=== PATIENT | male | born 1975 | race Caucasian/White ===

== ENCOUNTER 2016-07-29 15:11 | Inpatient (IN) | payer MEDICAID ==
[2016-07-29] VITALS (193 sets, daily range): BP systolic 123–126; BP diastolic 63–89; PULSE 79–89; TEMP 98.6–99.5; O2SAT 91–96
[~2016-07-29] VITALS: Ht 177.8 cm; Wt 69.6 kg
[2016-07-29] MEDS ORDERED: PREDNISONE20 MG PO (17:50)
[2016-07-29] MEDS ORDERED: DIPROLENE CR15GM TP (17:51)
[2016-07-29] MEDS ORDERED: ATROVENT I0.2 MG/1 M IH (17:52)
[2016-07-29] MEDS ORDERED: PROAIR HFA0.09 MG/AC IH (17:53)
[2016-07-29] MEDS ORDERED: RT SPIRIVA18 MCG IH (17:54)
[2016-07-29] MEDS ORDERED: XANAX 1MG1 MG PO (17:55)
[2016-07-29] MEDS ORDERED: NICODERM C21 MG/PATC TD (17:55)
[2016-07-29] MEDS ORDERED: SEREVENT IH (17:55)
[2016-07-29] MEDS ORDERED: PAXIL40 MG PO (17:56)
[2016-07-29] MEDS ORDERED: MINIPRESS2 MG PO (17:57)
[2016-07-29] MEDS ORDERED: SEROQUEL 1100 MG/TAB PO (17:57)
[2016-07-30] VITALS (508 sets, daily range): BP systolic 102–122; BP diastolic 65–81; PULSE 61–87; TEMP 98–98.6; O2SAT 88–99
[2016-07-30 16:24] LABS: HEMATOCRIT 40.2 % (42.0-52.0); MEAN CELL VOLUME 90 fl (80.0-100.0); MEAN CORPUSCULAR HEMOGLOBIN 31 pg (27.0-31.0); MEAN CORPUSCULAR HGB CONC 35 g/dl (33.0-37.0); MEAN PLATELET VOLUME 8.8 fl (7.4-10.4); PLATELET COUNT 243 K/mm3 (130-400); RED BLOOD COUNT 4.49 M/mm3 (4.20-5.60); WHITE BLOOD COUNT 6.7 K/mm3 (4.8-10.8)
[2016-07-30 16:28] LABS: ADJUSTED CALCIUM 8.7 mg/dL (8.4-10.2); ALANINE AMINOTRANSFERASE 28 U/L (21-72); ALBUMIN 3.6 gm/dL (3.5-5.0); ALKALINE PHOSPHATASE 55 U/L (50-136); ANION GAP 10 mmol/L (7-16); BILIRUBIN,TOTAL 0.6 mg/dL (0.0-1.0); BLOOD UREA NITROGEN 12 mg/dL (9-20); CALCIUM 8.4 mg/dL (8.4-10.2); CARBON DIOXIDE 27 mmol/L (22-30); CHLORIDE 100 mmol/L (98-107); CREATINE KINASE 44 U/L (55-170); CREATININE, serum 0.93 mg/dL (0.66-1.25); GLUCOSE 91 mg/dL (74-106); POTASSIUM 3.8 mmol/L (3.4-5.0); SODIUM 137 mmol/L (137-145); TOTAL PROTEIN 6.3 gm/dL (6.4-8.2)
[2016-07-30 16:29] LABS: CHOLESTEROL 174 mg/dL (120-200); HDL CHOLESTEROL 45 mg/dL; LDL CHOLESTEROL 106 mg/dL; TRIGLYCERIDE 116 mg/dL
[2016-07-30 16:43] LABS: TROPONIN-I < 0.012 ng/mL (0.000-0.034)
[2016-07-30 16:47] LABS: ADD PATHOLOGY DIFF REVIEW NO
[2016-07-30 16:58] LABS: BASOPHIL 2 % (0-2); NEUTROPHILS 46 % (42.0-75.2); TOTAL CELLS COUNTED 100
[2016-07-30 17:01] LABS: ERYTHROCYTE SEDIMENTATION RATE 2 mm/hr (0-15)
[2016-07-31 03:59] VITALS: BP 110/62; PULSE 75; TEMP 98.7
[2016-07-31 07:45] VITALS: BP 129/75; PULSE 71; TEMP 97.5
[2016-07-31] MEDS ORDERED: PLAVIX 75MG TAB75 MG PO (09:58)
[2016-07-31 11:28] VITALS: BP 117/77; PULSE 79; TEMP 98.1
[2016-07-31] MEDS ORDERED: PRAVACHOL 20MG20 MG PO (12:31)
== END 2016-07-31 13:31 | disposition home or self-care (01) | DRG 65 ==
LOC: ICU 15:11 → EDBD 17:18 → MEDICAL 07-30 15:10
PROVIDERS: Psychiatry & Neurology Neurology
DX: I63.9 Cerebral infarction, unspecified (principal); G81.94 Hemiplegia, unspecified affecting left nondominant side; J44.9 Chronic obstructive pulmonary disease, unspecified; R29.810 Facial weakness; Z66 Do not resuscitate; R07.9 Chest pain, unspecified; F41.9 Anxiety disorder, unspecified; F32.9 Major depressive disorder, single episode, unspecified; F17.210 Nicotine dependence, cigarettes, uncomplicated; F12.90 Cannabis use, unspecified, uncomplicated; F43.11 Post-traumatic stress disorder, acute
CPT/HCPCS: 99223-AI; 99232-AI; 99239; A9585; Q9967

== ENCOUNTER 2016-11-08 02:53 | Emergency (ER) | payer MEDICAID ==
[~2016-11-08] VITALS: Ht 177.8 cm; Wt 81.8 kg
[~2016-11-08 02:53] MED LIST: ATROVENT I0.2 MG/1 M IH; DIPROLENE CR15GM TP; MINIPRESS2 MG PO; NICODERM C21 MG/PATC TD; PAXIL40 MG PO; PLAVIX 75MG TAB75 MG PO; PRAVACHOL 20MG20 MG PO; PREDNISONE20 MG PO; PROAIR HFA0.09 MG/AC IH; RT SPIRIVA18 MCG IH; SEREVENT IH; SEROQUEL 1100 MG/TAB PO; XANAX 1MG1 MG PO
[2016-11-08 03:10] VITALS: TEMP 98.3
[2016-11-08 03:11] LABS: BASO # 0.1 (0.0-0.2); BASO % 0.6 % (0.0-2.0); EOS # 0.1 (0.0-0.7); EOS % 1.1 % (0-4.0); GRAN # 5.5 (1.4-6.5); GRAN % 54.2 % (42.2-75.2); HEMATOCRIT 44.8 % (42.0-52.0); HEMOGLOBIN 15.7 g/dl (13.5-18.0); LYMPH # 3.5 (1.2-3.4); LYMPH % 34.7 % (20.0-51.0); MEAN CELL VOLUME 90 fl (80.0-100.0); MEAN CORPUSCULAR HEMOGLOBIN 31 pg (27.0-31.0); MEAN CORPUSCULAR HGB CONC 35 g/dl (33.0-37.0); MEAN PLATELET VOLUME 8.9 fl (7.4-10.4); MONO # 0.9 (0.1-0.6); MONO % 9.1 % (1.7-9.3); PLATELET COUNT 306 K/mm3 (130-400); REDCELL DISTRIBUTION WIDTH-CV 13.1 % (11.5-14.5); WHITE BLOOD COUNT 10.1 K/mm3 (4.8-10.8)
[2016-11-08 03:21] LABS: BLOOD UREA NITROGEN 16 mg/dL (9-20); CHLORIDE 108 mmol/L (98-107); CREATININE, serum 1.02 mg/dL (0.66-1.25); GLUCOSE 97 mg/dL (74-106); POTASSIUM 4.1 mmol/L (3.4-5.0); SODIUM 143 mmol/L (137-145)
[2016-11-08 03:22] LABS: ADJUSTED CALCIUM 8.8 mg/dL (8.4-10.2); ALANINE AMINOTRANSFERASE 22 U/L (21-72); ALBUMIN 4.8 gm/dL (3.5-5.0); ALKALINE PHOSPHATASE 75 U/L (50-136); ANION GAP 21 mmol/L (7-16); BILIRUBIN,TOTAL 0.6 mg/dL (0.0-1.0); CALCIUM 9.4 mg/dL (8.4-10.2); CARBON DIOXIDE 14 mmol/L (22-30); LIPASE 163 U/L (23-300); TOTAL PROTEIN 7.7 gm/dL (6.4-8.2)
[2016-11-08 03:36] LABS: TROPONIN-I < 0.012 ng/mL (0.000-0.034)
[2016-11-08 03:39] LABS: PH 6 (5-8); SQUAMOUS EPITHELIAL None Seen /hpf; URINE APPEARANCE Clear; URINE BACTERIA None Seen /hpf; URINE BILIRUBIN Negative (NEGATIVE); URINE BLOOD 1+ (NEGATIVE); URINE COLOR Colorless; URINE GLUCOSE Negative (NEGATIVE); URINE KETONE Negative (NEGATIVE); URINE RBC 0-2 /hpf; URINE UROBILINOGEN Negative (NEGATIVE); URINE WBC None Seen /hpf
[2016-11-08 03:44] LABS: AMPHETAMINE URINE NEGATIVE; BARBITURATES URINE NEGATIVE; BENZODIAZEPINES URINE POSITIVE; BUPRENORPHINE URINE NEGATIVE; METHADONE URINE NEGATIVE; OPIATES URINE NEGATIVE; OXYCODONE URINE NEGATIVE; PHENCYCLIDINE URINE NEGATIVE; PROPOXYPHENE URINE NEGATIVE; THC CANNABINOIDS URINE NEGATIVE
[2016-11-08 05:23] VITALS: BP 107/67; PULSE 78
== END 2016-11-08 05:25 | disposition home or self-care (01) ==
LOC: COL.ER 02:53
PROVIDERS: Emergency Medicine
DX: R10.13 Epigastric pain (principal); Z86.73 Personal history of transient ischemic attack (TIA), and cerebral infarction without residual deficits; F17.210 Nicotine dependence, cigarettes, uncomplicated; Z79.02 Long term (current) use of antithrombotics/antiplatelets; I51.9 Heart disease, unspecified
CPT/HCPCS: J1630; J3010; J7030; Q9967

== ENCOUNTER 2016-11-25 03:00 | Emergency (ER) | payer MEDICAID ==
[~2016-11-25] VITALS: Ht 177.8 cm; Wt 82.7 kg
[2016-11-25 03:06] VITALS: TEMP 97.3
[2016-11-25] MEDS ORDERED: ZOFRAN ODT4 MG PO (03:18)
[2016-11-25] MEDS ORDERED: PRIL40 PO (03:19)
[2016-11-25] MEDS ORDERED: PROTONIX 40MG T40 MG PO (03:20)
[2016-11-25 03:22] LABS: BASO # 0.1 (0.0-0.2); BASO % 0.8 % (0.0-2.0); EOS # 0.2 (0.0-0.7); EOS % 1.9 % (0-4.0); GRAN # 5.4 (1.4-6.5); HEMOGLOBIN 15.2 g/dl (13.5-18.0); LYMPH % 31.5 % (20.0-51.0); MEAN CELL VOLUME 88 fl (80.0-100.0); MEAN CORPUSCULAR HEMOGLOBIN 31 pg (27.0-31.0); MEAN CORPUSCULAR HGB CONC 35 g/dl (33.0-37.0); MEAN PLATELET VOLUME 8.9 fl (7.4-10.4); MONO # 0.7 (0.1-0.6); MONO % 7.4 % (1.7-9.3); PLATELET COUNT 296 K/mm3 (130-400); RED BLOOD COUNT 4.87 M/mm3 (4.20-5.60); REDCELL DISTRIBUTION WIDTH-CV 13.2 % (11.5-14.5); WHITE BLOOD COUNT 9.5 K/mm3 (4.8-10.8)
[2016-11-25 03:31] LABS: ADJUSTED CALCIUM 8.7 mg/dL (8.4-10.2); ALANINE AMINOTRANSFERASE 33 U/L (21-72); ALBUMIN 4.6 gm/dL (3.5-5.0); ALKALINE PHOSPHATASE 80 U/L (50-136); ANION GAP 17 mmol/L (7-16); BILIRUBIN,TOTAL 0.4 mg/dL (0.0-1.0); BLOOD UREA NITROGEN 10 mg/dL (9-20); CALCIUM 9.2 mg/dL (8.4-10.2); CARBON DIOXIDE 23 mmol/L (22-30); CHLORIDE 103 mmol/L (98-107); GLUCOSE 92 mg/dL (74-106); LIPASE 182 U/L (23-300); POTASSIUM 3.9 mmol/L (3.4-5.0); SODIUM 142 mmol/L (137-145); TOTAL PROTEIN 7.8 gm/dL (6.4-8.2)
[2016-11-25 03:40] LABS: B-TYPE NATRIURETIC PEPTIDE 80 pg/mL (0-125)
[2016-11-25 03:55] LABS: TROPONIN-I < 0.012 ng/mL (0.000-0.034)
[2016-11-25 06:01] VITALS: BP 114/73; PULSE 97
== END 2016-11-25 06:01 | disposition home or self-care (01) ==
LOC: COL.ER 03:00
PROVIDERS: Emergency Medicine
DX: R10.13 Epigastric pain (principal); R07.9 Chest pain, unspecified; I10 Essential (primary) hypertension; J44.9 Chronic obstructive pulmonary disease, unspecified; Z79.02 Long term (current) use of antithrombotics/antiplatelets; F17.200 Nicotine dependence, unspecified, uncomplicated; Z72.89 Other problems related to lifestyle
CPT/HCPCS: C9113; J2405

== ENCOUNTER 2016-12-02 02:55 | Emergency (ER) | payer MEDICAID ==
[~2016-12-02] VITALS: Ht 177.8 cm; Wt 90.9 kg
[~2016-12-02 02:55] MED LIST changes: +PRIL40 PO; +PROTONIX 40MG T40 MG PO; +ZOFRAN ODT4 MG PO
[2016-12-02 03:01] VITALS: TEMP 98.3
[2016-12-02] MEDS ORDERED: CHANTIX 1MG1 MG PO (03:14)
[2016-12-02 03:20] LABS: BASO # 0.1 (0.0-0.2); BASO % 0.7 % (0.0-2.0); EOS # 0.1 (0.0-0.7); EOS % 1.6 % (0-4.0); GRAN # 4.8 (1.4-6.5); GRAN % 54.7 % (42.2-75.2); HEMOGLOBIN 14.6 g/dl (13.5-18.0); LYMPH # 3.1 (1.2-3.4); LYMPH % 35.2 % (20.0-51.0); MEAN CELL VOLUME 88 fl (80.0-100.0); MEAN CORPUSCULAR HEMOGLOBIN 31 pg (27.0-31.0); MEAN CORPUSCULAR HGB CONC 35 g/dl (33.0-37.0); MONO # 0.6 (0.1-0.6); MONO % 7.1 % (1.7-9.3); PLATELET COUNT 276 K/mm3 (130-400); RED BLOOD COUNT 4.76 M/mm3 (4.20-5.60); REDCELL DISTRIBUTION WIDTH-CV 13.2 % (11.5-14.5); WHITE BLOOD COUNT 8.7 K/mm3 (4.8-10.8)
[2016-12-02 03:30] LABS: ADJUSTED CALCIUM 8.4 mg/dL (8.4-10.2); ALANINE AMINOTRANSFERASE 33 U/L (21-72); ALBUMIN 4.6 gm/dL (3.5-5.0); ALKALINE PHOSPHATASE 82 U/L (50-136); ANION GAP 16 mmol/L (7-16); BILIRUBIN,TOTAL 0.4 mg/dL (0.0-1.0); BLOOD UREA NITROGEN 10 mg/dL (9-20); CALCIUM 8.9 mg/dL (8.4-10.2); CARBON DIOXIDE 20 mmol/L (22-30); CHLORIDE 105 mmol/L (98-107); GLUCOSE 98 mg/dL (74-106); LIPASE 203 U/L (23-300); POTASSIUM 3.8 mmol/L (3.4-5.0); SODIUM 141 mmol/L (137-145); TOTAL PROTEIN 7.6 gm/dL (6.4-8.2)
[2016-12-02 03:42] LABS: B-TYPE NATRIURETIC PEPTIDE 46 pg/mL (0-125); TROPONIN-I < 0.012 ng/mL (0.000-0.034)
[2016-12-02] MEDS ORDERED: PRIL40 PO (04:13)
[2016-12-02 06:17] VITALS: BP 127/80; PULSE 93
== END 2016-12-02 06:17 | disposition home or self-care (01) ==
LOC: COL.ER 02:55
PROVIDERS: Emergency Medicine
DX: R07.89 Other chest pain (principal); R10.13 Epigastric pain; J44.9 Chronic obstructive pulmonary disease, unspecified; F41.9 Anxiety disorder, unspecified; F43.10 Post-traumatic stress disorder, unspecified; F17.210 Nicotine dependence, cigarettes, uncomplicated; Z79.02 Long term (current) use of antithrombotics/antiplatelets; Z98.890 Other specified postprocedural states; Z98.52 Vasectomy status
CPT/HCPCS: C9113; J1885

== ENCOUNTER 2016-12-15 09:45 | Emergency (ER) | payer MEDICAID ==
[~2016-12-15] VITALS: Ht 177.8 cm; Wt 86.8 kg
[~2016-12-15 09:45] MED LIST changes: +CHANTIX 1MG1 MG PO
[2016-12-15 09:49] VITALS: TEMP 98.5
[2016-12-15 10:24] LABS: BASO # 0.1 (0.0-0.2); BASO % 0.6 % (0.0-2.0); EOS % 0.3 % (0-4.0); GRAN # 7.8 (1.4-6.5); GRAN % 68.2 % (42.2-75.2); HEMATOCRIT 44.8 % (42.0-52.0); HEMOGLOBIN 15.8 g/dl (13.5-18.0); LYMPH # 2.4 (1.2-3.4); LYMPH % 21.2 % (20.0-51.0); MEAN CELL VOLUME 87 fl (80.0-100.0); MEAN CORPUSCULAR HEMOGLOBIN 31 pg (27.0-31.0); MEAN CORPUSCULAR HGB CONC 35 g/dl (33.0-37.0); MEAN PLATELET VOLUME 8.8 fl (7.4-10.4); MONO # 1.1 (0.1-0.6); MONO % 9.3 % (1.7-9.3); PLATELET COUNT 308 K/mm3 (130-400); RED BLOOD COUNT 5.13 M/mm3 (4.20-5.60); REDCELL DISTRIBUTION WIDTH-CV 13.3 % (11.5-14.5); WHITE BLOOD COUNT 11.5 K/mm3 (4.8-10.8)
[2016-12-15 10:35] LABS: ADJUSTED CALCIUM 9.6 mg/dL (8.4-10.2); ALANINE AMINOTRANSFERASE 40 U/L (21-72); ALBUMIN 5.2 gm/dL (3.5-5.0); ALKALINE PHOSPHATASE 96 U/L (50-136); ANION GAP 18 mmol/L (7-16); BILIRUBIN,TOTAL 0.9 mg/dL (0.0-1.0); BLOOD UREA NITROGEN 10 mg/dL (9-20); CALCIUM 10.6 mg/dL (8.4-10.2); CARBON DIOXIDE 15 mmol/L (22-30); CHLORIDE 106 mmol/L (98-107); CREATININE, serum 1.02 mg/dL (0.66-1.25); GLUCOSE 95 mg/dL (74-106); LIPASE 158 U/L (23-300); POTASSIUM 3.7 mmol/L (3.4-5.0); SODIUM 139 mmol/L (137-145); TOTAL PROTEIN 8.4 gm/dL (6.4-8.2)
[2016-12-15 10:54] LABS: TROPONIN-I < 0.012 ng/mL (0.000-0.034)
[2016-12-15 11:20] VITALS: BP 131/87; PULSE 60
== END 2016-12-15 11:20 | disposition home or self-care (01) ==
LOC: COL.ER 09:45
PROVIDERS: Physician Assistant
DX: R10.13 Epigastric pain (principal); K21.9 Gastro-esophageal reflux disease without esophagitis; F43.10 Post-traumatic stress disorder, unspecified; J44.9 Chronic obstructive pulmonary disease, unspecified; I10 Essential (primary) hypertension; F17.210 Nicotine dependence, cigarettes, uncomplicated; Z86.73 Personal history of transient ischemic attack (TIA), and cerebral infarction without residual deficits; Z87.11 Personal history of peptic ulcer disease; Z86.79 Personal history of other diseases of the circulatory system

== ENCOUNTER → 2020-02-16 | Outpatient (CLI) | payer MEDICAID | LOC: ZCOL.LAB 18:04 | DX: Z20.828 Contact with and (suspected) exposure to other viral communicable diseases (principal) ==

== ENCOUNTER 2022-01-30 13:36 | Emergency (ER) | payer OTHER ==
[~2022-01-30] VITALS: Ht 177.8 cm; Wt 88.6 kg
[2022-01-30 13:54] VITALS: TEMP 98.4
[2022-01-30 14:21] LABS: BASO # 0.1 K/mm3 (0.0-0.2); BASO % 0.7 % (0.0-2.0); EOS # 0.2 K/mm3 (0.0-0.7); GRAN # 6.6 K/mm3 (1.4-6.5); HEMATOCRIT 45.5 % (42.0-52.0); HEMOGLOBIN 15.8 g/dl (13.5-18.0); LYMPH # 2.9 K/mm3 (1.2-3.4); MEAN CELL VOLUME 88 fl (80.0-100.0); MEAN CORPUSCULAR HEMOGLOBIN 31 pg (27-31); MEAN CORPUSCULAR HGB CONC 35 g/dl (33.0-37.0); MEAN PLATELET VOLUME 8.9 fl (7.4-10.4); MONO % 8.9 % (1.7-9.3); PLATELET COUNT 274 K/mm3 (130-400); RED BLOOD COUNT 5.17 M/mm3 (4.20-5.60)
[2022-01-30 14:43] LABS: ALBUMIN 4.4 gm/dL (3.5-5.0); BILIRUBIN,TOTAL 0.3 mg/dL (0.2-1.2); C-REACTIVE PROTEIN 0.11 mg/dL (0.00-0.50); CALCIUM 8.8 mg/dL (8.4-10.2); CREATININE, serum 1.06 mg/dL (0.72-1.25); POTASSIUM 4.6 mmol/L (3.5-4.5); TOTAL PROTEIN 6.7 gm/dL (6.2-8.1)
[2022-01-30] MEDS ORDERED: KLONOPIN 1MG1 MG PO (14:48)
[2022-01-30] MEDS ORDERED: CRESTOR40 MG PO (14:49)
[2022-01-30] MEDS ORDERED: SEROQUEL300 MG PO (14:49)
[2022-01-30] MEDS ORDERED: MINIPRESS2 MG (14:49)
[2022-01-30] MEDS ORDERED: NICODERM C14 MG/PATC TD (14:50)
[2022-01-30] MEDS ORDERED: BUSPAR DIVIDOSE15 MG PO (14:50)
[2022-01-30] MEDS ORDERED: TALTZ AUTO80 MG/1 ML SQ (14:50)
[2022-01-30 17:24] LABS: COLLECTION METHOD CLEAN CATCH
[2022-01-30 17:25] VITALS: BP 131/83; PULSE 73
[2022-01-30 17:40] LABS: URINE APPEARANCE Clear (CLEAR/HAZY); URINE COLOR Yellow (YELLOW); URINE PROTEIN(semi-quant) Negative (NEGATIVE)
[2022-01-30 17:41] LABS: MUCOUS Present (NOT PRESENT); SQUAMOUS EPITHELIAL None Seen /hpf (0-10); URINE BACTERIA None Seen /hpf (NONE SEEN); URINE BLOOD 1+ (NEGATIVE); URINE GLUCOSE Negative (NEGATIVE); URINE KETONE Negative (NEGATIVE); URINE NITRATE Negative (NEGATIVE); URINE RBC 0-2 /hpf (0-2); URINE UROBILINOGEN 0.2 E.U/dL (0.2-1.0)
== END 2022-01-30 17:25 | disposition home or self-care (01) ==
LOC: COL.ER 13:36
PROVIDERS: Physician Assistant
DX: R10.31 Right lower quadrant pain (principal); F17.210 Nicotine dependence, cigarettes, uncomplicated; Z88.6 Allergy status to analgesic agent
CPT/HCPCS: J1885; Q9967

== ENCOUNTER → 2023-06-21 | Outpatient (CLI) | payer OTHER ==
[~2023-06-21] MED LIST changes: +BUSPAR DIVIDOSE15 MG PO; +CRESTOR40 MG PO; +KLONOPIN 1MG1 MG PO; +MINIPRESS2 MG; +NICODERM C14 MG/PATC TD; +SEROQUEL300 MG PO; +TALTZ AUTO80 MG/1 ML SQ
== END ==
LOC: MHCPAIN 10:41
DX: M54.16 Radiculopathy, lumbar region (principal); M25.852 Other specified joint disorders, left hip
CPT/HCPCS: G0463

== ENCOUNTER → 2023-08-16 | Outpatient (CLI) | payer OTHER | LOC: MHCPAIN 09:50 | DX: M54.16 Radiculopathy, lumbar region (principal); M25.852 Other specified joint disorders, left hip | CPT/HCPCS: G0463 ==

== ENCOUNTER → 2023-09-06 | Outpatient (CLI) | payer OTHER | LOC: COL.RAD 12:55 | DX: M54.16 Radiculopathy, lumbar region (principal) ==

== ENCOUNTER → 2023-09-07 | Outpatient (CLI) | payer OTHER | LOC: MHCPAIN 11:15 | DX: M79.605 Pain in left leg (principal); M25.552 Pain in left hip; M25.852 Other specified joint disorders, left hip; M54.50 Low back pain, unspecified; M79.2 Neuralgia and neuritis, unspecified | CPT/HCPCS: G0463 ==